=== PATIENT | female | born 1945 | race Caucasian/White ===

== ENCOUNTER 2018-09-07 16:19 | Emergency (ER) | payer MEDICARE, BC ==
[2018-09-07] MEDS ORDERED: Lidocaine PATCH 5%* 1 PATCH TRANSDERM ONE (16:54)
[2018-09-07] MEDS ORDERED: HYDROcodone/ACETAMIN 5-325 MG* 1 TAB PO ONE (16:55)
--- NOTE | 2018-09-07 18:26 | ED ---
Skin Complaint - HPI Summary HPI Summary: 73 year old female presents for evaluation of a tick bite on her left upper back. Pt states she noticed it on 09/05/18 when it was removed. She states it was only attached for a few hours. Pt reports pain and tenderness on the tick site. She also reports a burning pain along the left flank. She took 2 doxycycline 100mg pills prior to presenting to the ED. She denies fever, chills , N/V, diarrhea, SOB, myalgia, and chest pain. - History of Current Complaint Chief Complaint: EDRashSkinAbscess Time Seen by Provider: 09/07/18 16:39 Stated Complaint: ALLERGIC REACTION PER PT Hx Obtained From: Patient Pain Intensity: 7 - Allergy/Home Medications Allergies/Adverse Reactions: Allergies Allergy/AdvReac Type Severity Reaction Status Date / Time aspirin Allergy Nausea Verified 09/07/18 16:21 [From [employer]] hornet venom Allergy Anaphylatic Verified 09/07/18 16:21 Shock Penicillins Allergy Unknown Verified 09/07/18 16:21 Reaction Details pentazocine Allergy Nausea Verified 09/07/18 16:21 [From [employer]] Home Medications: Home Medications Amlodipine Besylate [Amlodipine 2.5 mg tab] 2.5 mg PO DAILY 09/07/18 [History Confirmed 09/07/18] Aspirin [Cheli Aspirin EC Low Dose 81 MG] 81 mg PO DAILY 09/07/18 [History Confirmed 09/07/18] Cholecalciferol (Vitamin D3) [Natural Vitamin D-3] 5,000 unit PO DAILY 09/07/18 [History Confirmed 09/07/18] LevoCETirizine TAB (NF) [Xyzal TAB (NF)] 5 mg PO DAILY 09/07/18 [History Confirmed 09/07/18] Losartan Potassium 100 mg PO DAILY 09/07/18 [History Confirmed 09/07/18] Meloxicam 7.5 mg PO DAILY PRN 09/07/18 [History Confirmed 09/07/18] Pregabalin CAP(*) [Lyrica CAP(*)] 25 mg PO BID 09/07/18 [History Confirmed 09/07] PMH/Surg Hx/FS Hx/Imm Hx Endocrine/Hematology History: Denies: Hx Diabetes Cardiovascular History: Denies: Hx Hypertension, Hx Pacemaker/ICD, Other Cardiovascular Problems/ Disorders Respiratory History: Reports: Hx Asthma - ALLERGENIC ASTHMA Denies: Other Respiratory Problems/Disorders GI History: Reports: Hx Hiatal Hernia - SURGERY DONE Denies: Other GI Disorders History: Reports: Hx Kidney Stones Denies: Hx Renal Disease, Other Problems/Disorders Musculoskeletal History: Denies: Other Musculoskeletal History Sensory History: Reports: Hx Cataracts - LEFT EYE AND RIGHT, Hx Contacts or Glasses - GLASSES Denies: Hx Hearing Aid Opthamlomology History: Reports: Hx Cataracts - LEFT EYE AND RIGHT, Hx Contacts or Glasses - GLASSES Neurological History: Denies: Other Neuro Impairments/Disorders Psychiatric History: Denies: Hx Panic Disorder - Cancer History Cancer Type, Location and Year: BREAST CARCINOMA Hx Chemotherapy: No Hx Radiation Therapy: Yes - Surgical History Surgery Procedure, Year, and Place: LAP [place] FUNDIPLICATION, [place], [facility] [place]STERECTOMY, 2009, [facility]. BILATERAL CATARACT 07/2014, [facility]. RIGHT BREAST LUMPECTOMY, [facility]. KIDNEY STONES, 06/2013, Hx Anesthesia Reactions: Yes - NAUSEA - Immunization History Immunizations Up to Date: Yes Infectious Disease History: No Infectious Disease History: Denies: Traveled Outside the [place] in Last 30 Days - Social History Alcohol Use: Daily Alcohol Amount: 1 PER DAY Substance Use Type: Reports: None Smoking Status (MU): Never Smoked Tobacco Have You Smoked in the Last Year: No Review of Systems Constitutional: Negative Negative: Fever, Chills, Fatigue ENT: Negative Negative: Sore Throat Cardiovascular: Negative Negative: Palpitations, Chest Pain Respiratory: Negative Negative: Shortness Of Breath, Cough Gastrointestinal: Negative Negative: Abdominal Pain, Vomiting, Diarrhea, Nausea Negative: Myalgia Positive: Other - tick bite with redness along the left flank Negative: Weakness All Other Systems Reviewed And Are Negative: Yes Physical Exam Triage Information Reviewed: Yes Vital Signs On Initial Exam: Initial Vitals Temp Pulse Resp BP Pulse Ox 98.6 F 76 16 144/86 96 09/07/18 16:22 09/07/18 16:22 09/07/18 16:22 09/07/18 16:22 09/07/18 16:22 Vital Signs Reviewed: Yes Appearance: Positive: Well-Appearing, Well-Nourished Skin: Positive: Warm, Skin Color Reflects Adequate Perfusion, Dry, Other - Tick bite site is with background erythema and tenderness. Thin erythematous stripe in a dermatomal distribution along the left flank with pain out of proprtion to exam Head/Face: Positive: Normal Head/Face Inspection, Temporal Artery Tenderness Eyes: Positive: Normal, EOMI ENT: Positive: Normal ENT inspection, Hearing grossly normal Neck: Positive: Supple, Nontender, No Lymphadenopathy Respiratory/Lung Sounds: Positive: Clear to Auscultation, Breath Sounds Present Cardiovascular: Positive: Normal, RRR, Pulses are Symmetrical in both Upper and Lower Extremities Abdomen Description: Positive: Nontender Neurological: Positive: Normal, Sensory/Motor Intact, Alert, Oriented to Person Place, Time, CN Intact II-III Psychiatric: Positive: Normal, Affect/Mood Appropriate Procedures - Procedure Summary Procedure Summary: Residual tick particle was removed today. Pt was sitting in the upright position. The area was prepped using alcohol pads and 1 cc of 1% lidocaine was injected around the tick bite site. The residual particle was removed with a pair of forceps and the area was dressed with a bandaid. Pt tolerated the procedure well. Diagnostics - Vital Signs Vital Signs Temp Pulse Resp BP Pulse Ox 09/07/18 16:22 98.6 F 76 16 144/86 96 - Laboratory Lab Statement: Any lab studies that have been ordered have been reviewed, and results considered in the medical decision making process. Course/Dx - Course Course Of Treatment: Pt presents after removing a tick on her left upper back. She reports pain and tenderness along the left flank and upper back. The tick was attached for a few hours. She denies any fever, N/V, diarrhea, chest pain, SOB, or cold-like symptoms. Pt took 2 doxycycline pills prior to being seen. Her exam reveals residual tick particle with a thin erythamatous stripe in a dermatomal pattern along the left flank with pain out of proportion to exam findings. Bedside ultrasound reveals no tissue edema c/w cellulitis in the area. The residual tick was removed and a lidocaine patch was applied. Pt reports improvement of her symptoms with the lidocaine patch. Pt is likely having a reaction from the tick bite. She is to continue taking doxycycline BID x7-10 days, take lyrica 4 times a day for the pain. She was recommended to continue with OTC lidocaine patches and was given percocet for pain management. She is instructed to return to the ED with fever, chills, new rashes/lesions, or worsening symptoms. Assessment/Plan: Patient was seen in conjunction with the physician assistant statistician student. The above history physical and medical decision making represents my work. Patient with partial tick removal in her left flank. The remainder was removed here. She has red streaking going towards her left lower quadrant. This was examined with bedside ultrasound which failed to show any tissue edema. This likely represents lymphangitis. The patient has previously had the shingrex vaccine. Topical lidocaine patch applied with great relief. Treated herself with prophylactic doxycycline. We'll continue this for possibility of infection. Lyme testing done here. Follow up with primary care physician. - Differential Diagnoses - Skin Complaint Differential Diagnoses: Abscess, Allergic Reaction, Cellulitis, Local Allergic Reaction, Lymphangitis, Tick Born Illness, Varicella Zoster - Diagnoses Provider Diagnoses: Tick bite of back, Lymphangitis Discharge - Sign-Out/Discharge Documenting (check all that apply): Patient Departure Patient Received Moderate/Deep Sedation with Procedure: No - Discharge Plan Condition: Improved Disposition: HOME Prescriptions: oxyCODONE/Acetam5/325MG PREPAK [Percocet 5/325 TAB*] 0.5 - 1 tab PO Q6H PRN #8 tab MDD 4 PRN Reason: more severe pain Patient Education Materials: Tick Bite (ED), Lymphangitis (ED) Referrals: Caity Solis MD [Primary Care Provider] - Additional Instructions: Lidocaine patch to be removed in 12 hrs time. Lidocaine 4% patches can be obtained [id number]-jeb-gbively under that brand-name salon pas. Continue doxycycline 1 pill twice daily until Lyme testing comes back. Return with fever , increased redness, vesicles/blisters in the area of redness, worse, new symptoms or other concerns as discussed. Call your doctor first thing in the morning to schedule follow-up. Take your Lyrica 2 pills twice daily. - Billing Disposition and Condition Condition: IMPROVED Disposition: Home - Attestation Statements Document Initiated by Carri: No
[2018-09-07 18:34] VITALS: BP 147/91
[2018-09-07] MEDS ORDERED: Lidocaine Patch REMOVE* 1 NOTE MISC SCH (21:00)
[2018-09-10 20:25] LABS: B garinii/B afzelii PCR Negative (Negative); B mayonii PCR Negative (Negative)
== END 2018-09-07 18:33 | disposition home or self-care (01) ==
LOC: ED 16:19
DX: S20.462A Insect bite (nonvenomous) of left back wall of thorax, initial encounter (principal); I89.1 Lymphangitis; J45.909 Unspecified asthma, uncomplicated; Z88.6 Allergy status to analgesic agent; Z88.0 Allergy status to penicillin; Z88.8 Allergy status to other drugs, medicaments and biological substances; Z85.3 Personal history of malignant neoplasm of breast
CPT/HCPCS: 87476; 87798; 99282; A9270-GY